=== PATIENT | male | born 1945 | race Two or more races ===

== ENCOUNTER 2021-06-24 07:20 | Day surgery (SDC) | payer OTHER ==
[~2021-06-24 07:20] MED LIST: ALLEGR PO; LISINOPRIL10 MG; LOSART PO; NORFLEX100 MG; NORVASC2.5 M1; RELAFEN500 MG
== END 2021-06-24 17:25 | disposition home or self-care (01) ==
LOC: CIR.AMB 07:20
PROVIDERS: ATTEND Urology
DX: N35.812 Other bulbous urethral stricture, male (principal); N35.811 Other urethral stricture, male, meatal; R33.9 Retention of urine, unspecified; N21.0 Calculus in bladder; I10 Essential (primary) hypertension; J45.909 Unspecified asthma, uncomplicated; E78.5 Hyperlipidemia, unspecified; Z87.891 Personal history of nicotine dependence; Z85.46 Personal history of malignant neoplasm of prostate; R73.03 Prediabetes; M19.90 Unspecified osteoarthritis, unspecified site; Z92.21 Personal history of antineoplastic chemotherapy

== ENCOUNTER 2022-03-16 11:43 | Emergency (ER) | payer OTHER ==
[~2022-03-16] VITALS: Ht 167.6 cm; Wt 73.5 kg
== END 2022-03-16 16:13 | disposition home or self-care (01) ==
LOC: ER 11:43
DX: S09.90XA Unspecified injury of head, initial encounter (principal); W10.9XXA Fall (on) (from) unspecified stairs and steps, initial encounter; Y93.9 Activity, unspecified; Y92.63 Factory as the place of occurrence of the external cause; S29.9XXA Unspecified injury of thorax, initial encounter; I10 Essential (primary) hypertension

== ENCOUNTER 2023-04-11 07:10 | Outpatient (CLI) | payer OTHER | END 2023-04-11 11:16 | disposition home or self-care (01) | LOC: TOM 07:10 | PROVIDERS: ATTEND Internal Medicine Gastroenterology | DX: K56.609 Unspecified intestinal obstruction, unspecified as to partial versus complete obstruction (principal); K63.5 Polyp of colon; K86.2 Cyst of pancreas ==